=== PATIENT | female | born 1990 | race Hispanic/Latino ===

== ENCOUNTER 2017-01-22 18:52 | Emergency (ER) | payer BC ==
[2017-01-22 19:45] LABS: Basophils % (Auto) 0.2 % (0.0-1.8); Hematocrit 42.2 % (30.3-42.9); Hemoglobin 13.9 gm/dl (10.1-14.3); Mean Corpuscular HGB Conc 33 % (30-34); Mean Corpuscular Hemoglobin 30 pg (28-32); Mean Corpuscular Volume 90 fl (79-97); Platelet Count 245 K/mm3 (140-440); Red Blood Count 4.69 M/mm3 (3.65-5.03); Red Cell Distribution Width 13.3 % (13.2-15.2)
[2017-01-22 20:07] LABS: Alanine Aminotransferase 7 units/L (7-56); Albumin 4.1 g/dL (3.9-5); Albumin/Globulin Ratio 1.6 %; Alkaline Phosphatase 56 units/L (35-129); Anion Gap 18 mmol/L; Blood Urea Nitrogen 7 mg/dL (7-17); Calcium 9.1 mg/dL (8.4-10.2); Carbon Dioxide 21 mmol/L (22-30); Chloride 98.5 mmol/L (98-107); Glucose 124 mg/dL (65-100); Lipase 24 units/L (13-60); Potassium 3.7 mmol/L (3.6-5.0); Sodium 134 mmol/L (137-145); Total Protein 6.6 g/dL (6.3-8.2)
[2017-01-22 20:26] LABS: Bilirubin,Urine NEG (Negative); Blood,Urine NEG (Negative); Ketones,Urine 20 mg/dL (Negative); Leukocyte Esterase,Urine NEG (Negative); Mucus,Urine 3+ /HPF; Nitrite,Urine NEG (Negative); Protein,Urine <15 mg/dL mg/dL (Negative); Urobilinogen,Urine < 2.0 mg/dL (<2.0); WBC,Urine < 1.0 /HPF (0.0-6.0)
[2017-01-23] MEDS ORDERED: ZOFRAN ODT PO/SL ONE (00:09)
--- NOTE | 2017-01-23 01:42 | Ultrasound Report ---
FINAL REPORT EXAM: US OB \T\lt; = 14 WEEKS FETUS HISTORY: pain COMPARISON: None available. TECHNIQUE: Several real-time grayscale and color Doppler images were obtained. Transabdominal and transvaginal exam. FINDINGS: The uterus measures 9.8 x 5.2 x 7.7 centimeters. Right ovary measures 2.6 x 2.2 x 1.7 centimeters. Left ovary measures 4.1 x 2.0 x 3.3 centimeters. Within the left ovary there is a cystic structure measuring 2.4 x 1.5 by 1.7 centimeters which may reflect corpus luteum. There is gross vascular flow to the ovaries. Single live IUP. Estimated gestational age 6 weeks 2 days. Estimated delivery date September 16, 2017. heart rate 115 beats per minute. IMPRESSION: Single live IUP. Estimated gestational age 6 weeks 2 days. Estimated delivery date September 16, 2014. 2.4 centimeter left ovarian cystic structure compatible with corpus luteum. No adnexal masses are demonstrated.
[2017-01-23] MEDS ORDERED: ZOFRAN ODT ONE (06:29)
--- NOTE | 2017-01-23 08:03 | Emergency Department Report ---
HPI - General Chief Complaint: Abdominal Pain Time Seen by Provider: 01/23/17 07:49 - HPI HPI: This is a 26-year-old female who presents the emergency department with complaint of a 24-hour history of nausea and vomiting to the point where she cannot even keep fluid down. It is associated with some lower abdominal cramping. She denies any vaginal bleeding, discharge, dysuria, fever, back pain. Patient believes she is about 4-6 weeks as her last menstrual cycle was December 08, she missed her most recent menstrual cycle and had a home positive regnancy test. She does not currently have an CLINIC ASSISTANT. She did not take anything for symptoms prior to presentation. She does have a past medical history of irritable bowel syndrome, anxiety and kidney stones. Both previous pregnancies were delivered via . No recent travel or sick contacts at home. ED Past Medical Hx - Past Medical History Previous Medical History?: Yes Hx GERD: Yes Hx Psychiatric Treatment: Yes (Anxiety) Additional medical history: kidney stones. IBS - Surgical History Past Surgical History?: Yes Additional Surgical History: c/s x 2. perineal repair - Social History Smoking Status: Never Smoker Substance Use Type: None - Medications Home Medications: Home Medications Medication Instructions Recorded Confirmed Last Taken Type Dicyclomine [Bentyl] 20 mg PO BID #15 tablet 02/07/15 Unknown Rx Esomeprazole Magnesium [NexIUM] 20 mg PO BID #40 capsule. 02/07/15 Unknown Rx Promethazine [Phenergan] 25 mg PO Q6H PRN #10 tablet 02/07/15 Unknown Rx Doxylamine/Pyridoxine HCl 1 each PO BID PRN #20 tablet. 01/23/17 Unknown Rx [Shree Gaspar 10-10 mg Tablet] Vit No.130/Iron/FA 1 each PO QDAY #30 tablet 01/23/17 Unknown Rx [ Tablet] ED Review of Systems ROS: Stated complaint: 4-6 WKS PREG/NAUSEA Other details as noted in HPI Comment: All other systems reviewed and negative Constitutional: denies: chills, fever Eyes: denies: eye pain, eye discharge, vision change ENT: denies: ear pain, throat pain Respiratory: denies: cough, shortness of breath, wheezing Cardiovascular: denies: chest pain, palpitations Gastrointestinal: abdominal pain (cramping), nausea, vomiting Genitourinary: denies: urgency, dysuria, discharge Musculoskeletal: denies: back pain, joint swelling, arthralgia Skin: denies: rash, lesions Neurological: denies: headache, weakness, paresthesias Physical Exam - Physical Exam Vital Signs: Vital Signs 01/22/17 19:20 Temperature 98.0 F Pulse Rate 59 L Respiratory 18 Rate Blood Pressure 116/64 [Right] O2 Sat by Pulse 100 Oximetry Physical Exam: GENERAL: The patient is well-developed well-nourished. HEENT: Normocephalic. Atraumatic. Extraocular motions are intact. Patient has moist mucous membranes. Pupils equal reactive to light bilaterally. NECK: Supple. Trachea is midline. CHEST/LUNGS: Clear to auscultation. There is no respiratory distress noted. HEART/CARDIOVASCULAR: Regular. There is no tachycardia. There is no gallop rub or murmur. ABDOMEN: Abdomen is soft, nontender. Patient has normal bowel sounds. There is no abdominal distention. No guarding or rebound tenderness. SKIN: Skin is warm and dry. NEURO: The patient is awake, alert, and oriented. The patient is cooperative. The patient has no focal neurologic deficits. The patient has normal speech. MUSCULOSKELETAL: There is no tenderness or deformity. There is no limitation range of motion. There is no evidence of acute injury. ED Course Vital Signs 01/22/17 19:20 Temperature 98.0 F Pulse Rate 59 L Respiratory 18 Rate Blood Pressure 116/64 [Right] O2 Sat by Pulse 100 Oximetry ED Medical Decision Making - Lab Data Result diagrams: 01/22/17 19:32 01/22/17 19:32 - Radiology Data Radiology results: report reviewed Transvaginal/ ultrasound shows a single live intrauterine at an estimated gestational age of about 6 weeks and 2 days. There is a 2.4 cm left ovarian cystic structure compatible with corpus luteum. No adnexal masses are demonstrated. - Medical Decision Making 26-year-old female presents with 1 day of nausea, vomiting and some abdominal cramping. No bleeding or discharge. Patient has a healthy beta hCG. Transvaginal/ ultrasound shows a live intrauterine at 6 weeks and 2 days. She was given some Zofran through triage and upon reevaluation she is improved. She was able to keep down fluids here. She will be started on diclegis and vitamins and given referrals for CLINIC ASSISTANT. She will return to the ER with any worsening of her symptoms or any acute distress. - Differential Diagnosis , hyperemesis, viral gastroenteritis, food poisoning, colitis Critical Care Time: No Critical care attestation.: If time is entered above; I have spent that time in minutes in the direct care of this critically ill patient, excluding procedure time. ED Disposition Clinical Impression: Dehydration, Hyperemesis gravidarum Qualifiers: Weeks of gestation: less than 8 weeks Qualified Code(s): Z3A.01 - Less than 8 weeks gestation of Nausea & vomiting Qualifiers: Vomiting type: unspecified Vomiting Intractability: non-intractable Qualified Code(s): R11.2 - Nausea with vomiting, unspecified Disposition: DISCHARGED TO HOME OR SELFCARE Is pt being admited?: No Condition: Stable Instructions: (ED), Hyperemesis Gravidarum (ED), Dehydration (ED), Acute Nausea and Vomiting (ED), Abdominal Pain (ED) Additional Instructions: Please follow-up with an CLINIC ASSISTANT in the next few days if possible. Return to the emergency department with any worsening of your symptoms or any acute distress. Please try to increase your oral rehydration. I have prescribed you vitamins. You can take Tylenol every 4 hours, using weight-based dosing, as needed for any fever or discomfort. Otherwise do not take any medications that are not prescribed by a physician. Prescriptions: Doxylamine/Pyridoxine HCl [Shree Gaspar 10-10 mg Tablet] 1 each PO BID PRN #20 tablet. PRN Reason: Nausea Vit No.130/Iron/FA [ Tablet] 1 each PO QDAY #30 tablet Referrals: PRIMARY CAREMD [Primary Care Provider] - 3-5 Days DOMENICA RODRIGUEZ MD [Staff Physician] - 3-5 Days [facility] [Provider Group] - 3-5 Days [facility] [Provider Group] - 3-5 Days Time of Disposition: 08:18
[2017-01-23 10:02] VITALS: BP 99/53
== END 2017-01-23 09:15 | disposition home or self-care (01) ==
LOC: ED 18:52
DX: O21.1 Hyperemesis gravidarum with metabolic disturbance (principal); O21.9 Vomiting of pregnancy, unspecified; R11.0 Nausea; K21.9 Gastro-esophageal reflux disease without esophagitis; F41.9 Anxiety disorder, unspecified; Z3A.01 Less than 8 weeks gestation of pregnancy
CPT/HCPCS: 36415; 76801; 76817; 80053; 81001; 83690; 84702; 84703; 85025; Q0162